=== PATIENT | male | born 1970 | race Caucasian/White ===

== ENCOUNTER 2022-08-03 08:00 | Outpatient (CLI) | payer SELFPAY ==
[2022-08-03 17:36] LABS: BASOPHILS # (AUTO) 0.1 10^3/uL (0.0-0.1); BASOPHILS % (AUTO) 0.8 %; EOSINOPHILS # (AUTO) 1.1 10^3/uL (0.0-0.7); EOSINOPHILS % (AUTO) 7.6 %; HCT - HEMATOCRIT 45.6 % (42.0-52.0); HGB - HEMOGLOBIN 13.4 g/dL (14.0-18.0); LYMPHOCYTES # (AUTO) 4.4 10^3/uL (1.5-3.5); LYMPHOCYTES % (AUTO) 30.1 %; MEAN CORPUSCULAR HEMOGLOBIN 22.3 pg (27.0-31.0); MEAN CORPUSCULAR HGB CONC 29.4 g/dL (32.0-36.0); MEAN PLATELET VOLUME 9.6 fL (7.4-11.4); MONOCYTES # (AUTO) 1.3 10^3/uL (0.0-1.0); MONOCYTES % (AUTO) 9.2 %; NEUTROPHILS # (AUTO) 7.5 10^3/uL (1.5-6.6); PLT - PLATELET COUNT 407 10^3/uL (130-450); RED CELL DISTRIBUTION WIDTH 15.9 % (12.0-15.0); WHITE BLOOD COUNT 14.5 x10^3/uL (4.8-10.8)
[2022-08-03 17:40] LABS: SLIDE REVIEW? Indicated
[2022-08-03 17:50] LABS: POTASSIUM 4.1 mmol/L (3.5-5.0)
[2022-08-03 18:11] LABS: DIFFERENTIAL COMMENT MANUAL=AUTO DIFF; PLATELET ESTIMATE, MANUAL NORMAL (130-450,000) (NORMAL); PLATELET MORPHOLOGY NORMAL APPEARANCE (NORMAL); RBC MORPHOLOGY (MULTIPLE) NORMAL APPEARANCE (NORMAL)
== END 2022-08-03 23:59 | disposition home or self-care (01) ==
LOC: LAB.N 08:00
PROVIDERS: ATTEND Physician Assistant
DX: R05.9 Cough, unspecified (principal)
CPT/HCPCS: 36415; 80048; 85025

== ENCOUNTER 2024-12-24 12:36 | Observation (INO) ==
--- NOTE | 2024-12-24 13:27 | ED Physician Documentation ---
History of Present Illness Stated complaint Stated Complaint: FLU LIKE SYMPTOMS Chief complaint Chief Complaint: General History obtained from History obtained from: Patient History of Present Illness Timing: Prior to arrival Additonal information Additional information: Patient is a 54-year-old male brought in by ambulance for generalized fatigue fevers cough body aches congestion and headache. Symptoms have been going on for 3 days. He notes symptoms started after he picked his daughter up from daycare and she had the flu. He notes he continues to have persistent symptoms. He has taken 200 of ibuprofen at home and drink lots of fluids with no relief. He notes he has been more fatigued and persistent headache that does not seem to go away he describes as a 9 out of 10 headache no history of migraines. No vomiting. No wheezing, cough, or sore throat with his symptoms. Meds/Allgy Allergies Allergies Allergy/AdvReac Type Severity Reaction Status Date / Time No Known Drug Allergies Allergy Verified 12/24/24 12:54 PFSH Active Problems All Active Problems (Updated 12/24/24 @ 15:14 by Teena Betancourt PA-C) Rhinovirus (Acute) Body aches (Acute) Cough (Acute) Right upper lobe pneumonia (Acute) Pneumonia (Acute) Social History Social History Relationship: Do you feel safe in your home environment?: Yes Suffered physical, verbal, emotional, or financial abuse?: No Exam Constitutional normal general appearance HENMT normocephalic, head/scalp atraumatic and hearing grossly normal bilaterally Eyes PERRL, EOMs intact bilaterally and conjunctivae normal Neck/C-Spine visual inspection normal and trachea midline Lymph no lymphadenopathy noted Chest inspection of chest normal Respiratory breath sounds equal bilaterally, normal respiratory effort and clear to auscultation bilaterally Cardiovascular normal heart rate noted, regular rhythm noted, no gallop and no rub Gastrointestinal abdomen normal to inspection No abdominal tenderness no rebound guarding. Extremities normal to inspection Skin skin color normal and no rash Results Vitals Vitals: Vital Signs - 24 hr 12/24/24 12:52 12/24/24 13:15 12/24/24 13:30 Temperature 38.3 C H Temperature Source Oral Pulse Rate 127 H 122 H 121 H Respiratory Rate 18 23 36 H Blood Pressure 145/84 H 166/99 H 185/73 H O2 Saturation 93 91 L 90 L O2 Source Room air Room air Room air If not protocol: Oxygen Flow, liters/minute Pain Intensity 9 9 9 12/24/24 13:31 12/24/24 13:54 12/24/24 14:00 Temperature Temperature Source Pulse Rate 117 H 112 H Respiratory Rate 36 H 22 Blood Pressure 141/76 H 127/75 O2 Saturation 90 L 94 O2 Source Room air Nasal cannula If not protocol: Oxygen Flow, liters/minute 2 Pain Intensity 8 9 7 12/24/24 14:17 12/24/24 14:38 12/24/24 14:42 Temperature 37.8 C 37.2 C Temperature Source Oral Oral Pulse Rate 112 H Respiratory Rate 20 Blood Pressure 117/76 O2 Saturation 93 O2 Source Room air If not protocol: Oxygen Flow, liters/minute Pain Intensity 6 7 12/24/24 15:09 Temperature Temperature Source Pulse Rate 103 H Respiratory Rate 16 Blood Pressure 123/85 O2 Saturation 87 L O2 Source Room air If not protocol: Oxygen Flow, liters/minute Pain Intensity 5 Oxygen O2 Source Room air Labs Labs: Laboratory Tests 12/24/24 12/24/24 12/24/24 13:05 13:06 13:06 WBC 19.2 H RBC 5.18 Hgb 11.5 L Hct 37.8 L MCV 73.0 L MCH 22.2 L MCHC 30.4 L RDW 14.5 Plt Count 309 MPV 9.9 Neut # (Auto) Not Reportable Lymph # (Auto) Not Reportable [place] # (Auto) Not Reportable Eos # (Auto) Not Reportable Baso # (Auto) Not Reportable Absolute Nucleated RBC Not Reportable Total Counted 100 Band Neuts % (Manual) 20 H Abnorm Lymph % (Manual) 0 Metamyelocytes % 2 H Nucleated RBC % Not Reportable Neutrophils # (Manual) 14.4 H Lymphocytes # (Manual) 3.5 Monocytes # (Manual) 0.8 Eosinophils # (Manual) 0.2 Basophils # (Manual) 0.0 Differential Comment MANUAL DIFFERENTIAL Manual Slide Review Indicated WBC Morphology 1+ DOHLE BODIES 1+ TOXIC GRANULATION Platelet Estimate NORMAL (130-450,000) Platelet Morphology 1+ LARGE PLATELETS RBC Morph Micro Appear 1+ HYPOCHROMASIA Sodium 131 L Potassium 3.6 Chloride 97 L Carbon Dioxide 25 Anion Gap 9.0 BUN 22 H Creatinine 1.1 Estimated GFR (MDRD) 70 L Glucose 166 H Lactic Acid 1.2 Calcium 8.8 Total Bilirubin 1.0 AST 32 ALT 28 Alkaline Phosphatase 65 Total Protein 7.4 Albumin 3.5 Globulin 3.9 Albumin/Globulin Ratio 0.9 L Lipase < 10 L Nasal Adenovirus (PCR) NOT DETECTED Nasal B. parapertussis DNA (PCR) NOT DETECTED Nasal Coronavir 229E PCR NOT DETECTED Nasal Coronavir HKU1 PCR NOT DETECTED Nasal Coronavir NL63 PCR NOT DETECTED Nasal Coronavir OC43 PCR NOT DETECTED Nasal Enterovir/Rhinovir PCR DETECTED A Nasal Influenza B PCR NOT DETECTED Nasal Influenza A PCR NOT DETECTED Nasal Parainfluen 1 PCR NOT DETECTED Nasal Parainfluen 2 PCR NOT DETECTED Nasal Parainfluen 3 PCR NOT DETECTED Nasal Parainfluen 4 PCR NOT DETECTED Nasal RSV (PCR) NOT DETECTED Nasal B.pertussis DNA PCR NOT DETECTED Nasal C.pneumoniae (PCR) NOT DETECTED Bradley Human Metapneumo PCR NOT DETECTED Nasal M.pneumoniae (PCR) NOT DETECTED Nasal SARS-CoV-2 (PCR) NOT DETECTED PD Medical Decision Making ED course Complexity details: reviewed old records and reviewed results ED course: Patient 54-year-old male presents with generalized bodyaches cough congestion and fatigue symptoms have been going on for approximately 3 days with persistent headache for his symptoms he has been drinking lots of fluids and took an ibuprofen and Sudafed this morning with no significant relief. Patient did not receive his flu shot this year he has congestion body aches with his symptoms as well. Symptoms started shortly after his daughter became sick with the flu as well. Vitals here in the ED remarkable for tachycardic to 120s on arrival febrile to 38.3 he is awake alert answering questions appropriately. Labs here in the emergency department showSignificant leukocytosis at 19. Patient has no lactic acid but does meet sepsis criteria and blood cultures were obtained. Patient is receiving IV fluids here in the ED he is receiving 2 L for persistent tachycardia but not 3 L for the concern for fluid overload and nonhypotensive for the 30 mL/kg sepsis protocol. Patient was started on ceftriaxone and azithromycin after chest x-ray showed right upper lobe pneumonia. Patient becoming hypoxic here in the ED no increased work of breathing patient saturating at 87% on room air and he was started on 2 L nasal cannula here in the ED. Patient appears to be tolerating this better. Given concerns for hypoxia related to pneumonia patient will be admitted for monitoring and IV antibiotics in patient. I discussed with Mukund nurse practitioner who is agreeable with admission at this time. Patient is safe for the floor. Patient agreeable to staying overnight and being monitored. After admission patient's procalcitonin did show significant elevation at 45. This was updated to hospitalists. Discharge Plan Discharge Patient Disposition: 66 [facility] DC/Xfer Condition: Stable Clinical Impression: Pneumonia, Right upper lobe pneumonia, Cough, Body aches, Rhinovirus Print Language: Maori
[2024-12-24 13:30] LABS: BASOPHILS % (AUTO) 0.6 %; EOSINOPHILS % (AUTO) 0.2 %; HCT - HEMATOCRIT 37.8 % (42.0-52.0); HGB - HEMOGLOBIN 11.5 g/dL (14.0-18.0); LYMPHOCYTES % (AUTO) 17.4 %; MEAN CORPUSCULAR HEMOGLOBIN 22.2 pg (27.0-31.0); MEAN CORPUSCULAR HGB CONC 30.4 g/dL (32.0-36.0); MEAN PLATELET VOLUME 9.9 fL (7.4-11.4); MONOCYTES % (AUTO) 3.5 %; NEUTROPHILS % (AUTO) 77.7 %; PLT - PLATELET COUNT 309 10^3/uL (130-450); RED BLOOD COUNT 5.18 10^6/uL (4.70-6.10); RED CELL DISTRIBUTION WIDTH 14.5 % (12.0-15.0); WHITE BLOOD COUNT 19.2 x10^3/uL (4.8-10.8)
[2024-12-24] MEDS: ACETAMINOPHEN 500 MG TABLET PO STA (13:31)
[2024-12-24] MEDS: SODIUM CHLORIDE 0.9% 1,000 ML IV STA ×2 (13:31→14:50)
[2024-12-24 13:34] LABS: ALBUMIN 3.5 g/dL (3.2-5.5); ALBUMIN/GLOBULIN RATIO 0.9 (1.0-2.2); ALKALINE PHOSPHATASE 65 IU/L (42-121); ALT ALANINE AMINOTRANSFERASE 28 IU/L (10-60); AST ASPARTATE AMINOTRANSFERASE 32 IU/L (10-42); BUN - BLOOD UREA NITROGEN 22 mg/dL (6-20); CALCIUM 8.8 mg/dL (8.5-10.3); CARBON DIOXIDE - CO2 25 mmol/L (21-32); CHLORIDE 97 mmol/L (101-111); CREATININE 1.1 mg/dL (0.6-1.3); GFR - MDRD 70 (>89); GLUCOSE 166 mg/dL (74-104); POTASSIUM 3.6 mmol/L (3.5-4.5); SODIUM 131 mmol/L (135-145); TOTAL PROTEIN 7.4 g/dL (6.4-8.9)
[2024-12-24 13:35] LABS: ABNORMAL LYMPHS % (MANUAL) 0 %; LIPASE < 10 U/L (11-82); SLIDE REVIEW? Indicated
[2024-12-24 13:56] LABS: BAND NEUTROPHILS % (MANUAL) 20 %; EOSINOPHILS # (MANUAL) 0.2 10^3/uL (0-0.7); LYMPHOCYTES # (MANUAL) 3.5 10^3/uL (1.5-3.5); LYMPHOCYTES % (MANUAL) 18 %; METAMYELOCYTES % (MANUAL) 2 %; MONOCYTES # (MANUAL) 0.8 10^3/uL (0.0-1.0); NEUTROPHILS # (MANUAL) 14.4 10^3/uL (1.5-6.6)
[2024-12-24 14:00] LABS: DIFFERENTIAL COMMENT MANUAL DIFFERENTIAL; PLATELET ESTIMATE, MANUAL NORMAL (130-450,000) (NORMAL); PLATELET MORPHOLOGY 1+ LARGE PLATELETS (NORMAL); RBC MORPHOLOGY (MULTIPLE) 1+ HYPOCHROMASIA (NORMAL)
[2024-12-24 14:11] LABS: CORONAVIRUS 229E-RESP PCR NOT DETECTED; CORONAVIRUS HKU1-RESP PCR NOT DETECTED; CORONAVIRUS NL63-RESP PCR NOT DETECTED; CORONAVIRUS OC43-RESP PCR NOT DETECTED; SARS-CoV-2 -RESP PCR PANEL NOT DETECTED
[2024-12-24 14:12] LABS: B. PARAPERTUSSIS- RESP PCR PAN NOT DETECTED; B. PERTUSSIS- RESP PCR PANEL NOT DETECTED; C. PNEUMONIAE- RESP PCR PANEL NOT DETECTED; HUMAN METAPNEUMOVIRUS NOT DETECTED; INFLUENZA A- RESP PCR PANEL NOT DETECTED; INFLUENZA B - RESP PCR PANEL NOT DETECTED; M. PNEUMONIAE- RESP PCR PANEL NOT DETECTED; PARAINFLUENZA VIRUS 1 NOT DETECTED; PARAINFLUENZA VIRUS 2 NOT DETECTED; PARAINFLUENZA VIRUS 4 NOT DETECTED; RHINOVIRUS/ENTEROVIRUS DETECTED; RSV- RESP PCR PANEL NOT DETECTED
[2024-12-24] MEDS: cefTRIAXone 2 GM VIAL IVP STA (14:49)
--- NOTE | 2024-12-24 14:59 | XRAY Report ---
PROCEDURE: XR Chest 2V INDICATIONS: sob, hypoxia TECHNIQUE: 2 views of the chest were acquired. COMPARISON: None. FINDINGS: Surgical changes and devices: None. Lungs and pleura: Right upper mid lobe opacities. Mediastinum: Mediastinal contours appear normal. Heart size is normal. Bones and chest wall: No suspicious bony lesions. Overlying soft tissues appear unremarkable. IMPRESSION: Right lobe opacity is most consistent with pneumonia. Interval follow-up is recommended after appropr iate therapy to document resolution. Reviewed by: Betina Bustos MD on 12/24/2024 2:58 PM PDT Approved by: Betina Bustos MD on 12/24/2024 2:58 PM PDT Station ID: [id number]
[2024-12-24] MEDS: AZITHROMYCIN INJ 500 MG in SODIUM CHLORIDE 0.9% 250 ML IV STA (15:03)
--- NOTE | 2024-12-24 15:51 | HISTORY & PHYSICAL EXAMINATION ---
Chief Complaint Chief Complaint Chief Complaint: Shortness of breath History of Present Illness Admitted From Admitted From:: Home History Obtained From Records Reviewed: EMR History obtained from: Patient Exam Limitations: None History of Present Illness HPI Comment/Other: Patient is a 54-year-old male with history of tobacco use who presents with worsening shortness of breath, fevers, chills, fatigue since Wednesday. He went to his child school to pick her up on Wednesday, and since then, has been feeling progressively worse. It started with fatigue. He then had a cough, which is productive of clear to green sputum. He then had progressive shortness of breath, followed by headache, fevers, chills. He has never been hospitalized before, nor does he have a history of pneumonia. He does smoke a pack and a half a day. He has never been diagnosed with COPD or asthma. He does not use inhalers at baseline. In the emergency room, patient was febrile to 101.0, tachycardic to 122, tachypneic to 36, and saturating 87% on room air. His blood pressure was initially elevated at 185/73. Lab work shows a leukocytosis of 19.2, hemoglobin of 11.5, sodium of 131, procalcitonin was elevated at 44.96, rhinovirus was detected. Chest x-ray does show a right lower lobe consolidation, consistent with pneumonia. Past medical history: Tobacco use Medications: None Allergies: No known drug allergies Surgical history: None Family history: Nonpertinent Social history: Drinks alcohol occasionally. Denies any recreational drug use. Smokes a pack and a half a day, has for many years. Meds/Allgy Allergies Allergies Allergy/AdvReac Type Severity Reaction Status Date / Time No Known Drug Allergies Allergy Verified 12/24/24 12:54 [facility] Active Problems All Active Problems (Updated 12/24/24 @ 15:51 by Celestino Dunn MD) Sepsis (Acute) Tobacco use (Acute) Acute hypoxic respiratory failure (Acute) Rhinovirus (Acute) Body aches (Acute) Cough (Acute) Right upper lobe pneumonia (Acute) Pneumonia (Acute) Social History Social History Relationship: Do you feel safe in your home environment?: Yes Suffered physical, verbal, emotional, or financial abuse?: No POLST Patient has POLST: No POLST Status: Full Code Review of Systems Constitutional Reports: Fatigue, Fever, Chills, Malaise and Weakness; Denies: Poor appetite, Weight gain or Weight loss Eyes Denies: Pain, Irritation, Amaurosis, Blurry vision, Floaters or Field loss Ears, nose, mouth, and throat Denies: Ear pain, Ear discharge, Hearing loss, Hearing aids, Nasal discharge, Nasal congestion, Post nasal drip, Neck pain or Throat swelling Cardiovascular Reports: shortness of breath with exertion and Decreased exercise tolerance; Denies: Irregular heart rate, chest pain, palpitations, edema, swelling of feet/ankles or Syncope Respiratory Reports: Shortness of breath, Cough, Sputum production and Change in phlegm color; Denies: Wheezing Gastrointestinal Denies: Abdominal pain, Abdominal distention, Nausea, Vomiting or Poor appetite Genitourinary Denies: Painful urination, Flank pain, Incontinence, Urinary frequency, Urinary urgency or Nocturia Musculoskeletal Denies: Back pain, Neck pain, Extremity pain, Extremity swelling or Gout Integumentary/Breast Denies: Rash, Itching, Dryness, Redness, Skin pain or Skin tenderness Neurological Reports: Headache and General weakness Psychiatric Denies: Depression, Anxiety, Mood swings, Panic attacks or Difficulty concentrating Endocrine Reports: Fatigue; Denies: Excessive urination, Excessive thirst or Polyphagia Hematologic/Lymphatic Denies: Anemia, Easy bruising or Petechiae Allergic/Immunologic Denies: Hives, Throat swelling, Tongue swelling or Wheezing Prior Level of Functionality: Fully independent prior to admission. Exam Constitutional normal general appearance, no apparent distress, average body habitus, no limitations and alert HENMT normocephalic and head/scalp atraumatic Eyes PERRL, EOMs intact bilaterally, conjunctivae normal and no scleral icterus Neck/C-Spine visual inspection normal and trachea midline Chest inspection of chest normal Respiratory breath sounds equal bilaterally and rales noted (Rales noted in right lower lobe, no wheezing noted) Cardiovascular normal heart rate noted, regular rhythm noted, no gallop and no murmur Gastrointestinal abdomen normal to inspection, abdomen soft to palpation, nontender to palpation and nontender to percussion Genitourinary no CVA tenderness Extremities normal to inspection, normal to palpation and no tenderness Neurology no movement abnormality noted Psychiatry mental status grossly normal, oriented x3, thought process normal, cooperative and affect normal Skin skin color normal, no rash and no lesions Conclusion/Plan Problem List (1) Acute hypoxic respiratory failure: Plan: Patient presented hypoxic to 87% on room air, tachycardic, tachypneic, febrile, with leukocytosis of 19. Procalcitonin 45, chest x-ray with right lower lobe consolidation, respiratory viral panel positive for rhinovirus. Likely bacterial pneumonia superimposed on viral pneumonia. Continue gentle IV fluid rehydration. Continue Rocephin and azithromycin. Blood cultures, sputum cultures ordered, pending. Continue to wean oxygen as tolerated. (2) Sepsis: Plan: See above. Qualifiers: Sepsis type: sepsis due to unspecified organism Sepsis acute organ dysfunction status: with acute organ dysfunction Severe sepsis acute organ dysfunction type: acute respiratory failure Acute respiratory failure type: w ith hypoxia Severe sepsis shock status: without septic shock Qualified Code(s): A41.9 - Sepsis, unspecified organism; R65.20 - Severe sepsis without septic shock; J96.01 - Acute respiratory failure with hypoxia (3) Rhinovirus: Plan: See above. Continue with supportive care with Robitussin DM as needed [id number], IV fluids. (4) Right upper lobe pneumonia: Plan: See above. Qualifiers: Pneumonia type: due to unspecified organism Qualified Code(s): J18.9 - Pneumonia, unspecified organism (5) Tobacco use: Plan: Nicotine patch ordered. Lab Results Lab results reviewed: Yes 12/24/24 13:06 12/24/24 13:06 Diagnostic Imaging Results Diagnostic Imaging Results: positive Final report reviewed
[2024-12-24] MEDS ORDERED: ONDANSETRON 4 MG/2 ML VIAL IVP PRN (16:25)
[2024-12-24] MEDS ORDERED: ONDANSETRON ODT 4 MG TABLET TL PRN (16:25)
[2024-12-24] MEDS ORDERED: SODIUM CHLORIDE FLUSH 0.9% 10 ML SYRINGE IVP PRN (16:25)
[2024-12-24] MEDS ORDERED: guaiFENesin/DEXTROMETHORPHAN 10 ML UDC PO PRN (16:25)
[2024-12-24] MEDS ORDERED: IBUPROFEN 400 MG TABLET PO PRN (16:25)
[2024-12-24] MEDS: NICOTINE 14 MG PATCH TOP SCH (19:12)
[2024-12-24] MEDS: SODIUM CHLORIDE FLUSH 0.9% 10 ML SYRINGE IVP SCH (19:13)
[2024-12-24] MEDS: ACETAMINOPHEN 325 MG TABLET PO PRN (19:14)
[2024-12-25 08:19] LABS: HCT - HEMATOCRIT 38.1 % (42.0-52.0); HGB - HEMOGLOBIN 11.3 g/dL (14.0-18.0); MEAN CORPUSCULAR HEMOGLOBIN 22.5 pg (27.0-31.0); MEAN CORPUSCULAR HGB CONC 29.7 g/dL (32.0-36.0); MEAN CORPUSCULAR VOLUME 75.7 fL (80.0-94.0); MEAN PLATELET VOLUME 10.4 fL (7.4-11.4); RED BLOOD COUNT 5.03 10^6/uL (4.70-6.10); RED CELL DISTRIBUTION WIDTH 14.9 % (12.0-15.0); WHITE BLOOD COUNT 17.3 x10^3/uL (4.8-10.8)
[2024-12-25 08:30] LABS: CALCIUM 8.1 mg/dL (8.5-10.3); CREATININE 0.9 mg/dL (0.6-1.3); POTASSIUM 3.7 mmol/L (3.5-4.5)
[2024-12-25] MEDS: ENOXAPARIN 40 MG/0.4 ML SYRINGE SUBQ SCH (09:10)
[2024-12-25] MEDS: cefTRIAXone 1 GM VIAL IVP SCH (09:10)
[2024-12-25] MEDS: AZITHROMYCIN 250 MG TABLET PO SCH (09:10)
--- NOTE | 2024-12-25 10:21 | PROVIDER PROGRESS NOTE ---
Subjective Subjective Subjective: Patient states that he feels better. He has no fevers or chills. His shortness of breath has improved. He still is having a cough productive of some clear to yellow sputum. He is eager to go home when able. Current Medications Current Medications Current Medications: Current Medications Generic Name Dose Route Start Last Admin Trade Name Freq PRN Reason Stop Dose Admin Acetaminophen 650 mg 12/24/24 16:25 12/25/24 05:37 Acetaminophen 325 Mg Tablet PO 650 mg Q4HR PRN Administration Pain 1 to 4, or Fever Azithromycin 500 mg 12/25/24 09:00 12/25/24 09:10 Azithromycin 250 Mg Tablet PO 500 mg DAILY CANDI Administration Ceftriaxone Sodium 1 gm 12/25/24 09:00 12/25/24 09:10 Ceftriaxone 1 Gm Vial IVP 1 gm DAILY CANDI Administration Enoxaparin Sodium 40 mg 12/25/24 09:00 12/25/24 09:10 Enoxaparin 40 Mg/0.4 Ml Syringe SUBQ 40 mg DAILY CANDI Administration Guaifenesin 10 ml 12/24/24 16:25 Guaifenesin/Dextromethorphan 10 Ml Udc PO Q6HR PRN Cough Ibuprofen 400 mg 12/24/24 16:25 Ibuprofen 400 Mg Tablet PO Q4HR PRN Pain 1 to 4 Nicotine 1 patch 12/24/24 19:00 12/25/24 09:11 Nicotine 14 Mg Patch TOP Not Given DAILY CANDI Ondansetron HCl 4 mg 12/24/24 16:25 Ondansetron Odt 4 Mg Tablet TL Q6HR PRN Nausea / Vomiting Ondansetron HCl 4 mg 12/24/24 16:25 Ondansetron 4 Mg/2 Ml Vial IVP Q6HR PRN Nausea / Vomiting Sodium Chloride 10 ml 12/24/24 16:25 Sodium Chloride Flush 0.9% 10 Ml Syringe IVP PRN PRN NEEDED PER PROVIDER ORDERS Sodium Chloride 10 ml 12/24/24 17:00 12/25/24 09:11 Sodium Chloride Flush 0.9% 10 Ml Syringe IVP 10 ml 0100,0900,1700 CANDI Administration Objective Vital Signs/Intake & Output Reviewed Vital Signs: Yes Vital Signs: Vital Signs x48h Temp Pulse Resp BP Pulse Ox 12/25/24 09:41 97.3 F L 86 16 136/92 H 93 12/25/24 06:00 98.4 F 92 20 119/74 92 Intake & Output: Intake & Output 12/22/24 12/23/24 12/24/24 12/25/24 23:59 23:59 23:59 23:59 Intake Total 3570 / 3570 360 / 360 Balance 3570 / 3570 360 / 360 Weight (kg) 106.5 kg Objective General Appearance: positive No acute distress and Alert; negative Anxious Eyes Bilateral: positive Normal inspection, PERRL and EOMI ENT: positive ENT inspection nml, Pharynx nml and No signs of dehydration Neck: positive Nml inspection, Thyroid nml and No JVD Respiratory: positive Chest non-tender and Rales (Diffuse Rales in all lung mc) Cardiovascular: positive Regular rate & rhythm, No murmur and No gallop Abdomen: positive Non-tender, No organomegaly and No distention; negative Tenderness, Guarding or Rebound Back: positive Nml inspection; negative CVA tenderness (R) or CVA tenderness (L) Skin: positive Color nml, No rash, Warm and Dry Extremities: positive Non-tender, Full ROM and No pedal edema Neurologic/Psychiatric: positive Oriented x3 and Mood/affect nml Lab Results 12/25/24 08:03 12/25/24 08:03 Other Labs: Lab Results x24hrs 12/25/24 12/24/24 12/24/24 Range/Units 08:03 14:42 13:06 WBC 17.3 H (4.8-10.8) x10^3/uL RBC 5.03 (4.70-6.10) 10^6/uL Hgb 11.3 L (14.0-18.0) g/dL Hct 38.1 L (42.0-52.0) % MCV 75.7 L (80.0-94.0) fL MCH 22.5 L (27.0-31.0) pg MCHC 29.7 L (32.0-36.0) g/dL RDW 14.9 (12.0-15.0) % Plt Count 271 (130-450) 10^3/uL MPV 10.4 (7.4-11.4) fL Neut # (Auto) Lymph # (Auto) [place] # (Auto) Eos # (Auto) Baso # (Auto) Absolute Nucleated RBC Total Counted Band Neuts % (Manual) (0 - 10) % Abnorm Lymph % (Manual) % Metamyelocytes % ( - 0) % Nucleated RBC % Neutrophils # (Manual) (1.5-6.6) 10^3/uL Lymphocytes # (Manual) (1.5-3.5) 10^3/uL Monocytes # (Manual) (0.0-1.0) 10^3/uL Eosinophils # (Manual) (0-0.7) 10^3/uL Basophils # (Manual) (0-0.1) 10^3/uL Differential Comment Manual Slide Review WBC Morphology 1+ TOXIC GRANULATION (NORMAL) Platelet Estimate NORMAL (130-450,000) (NORMAL) Platelet Morphology 1+ LARGE PLATELETS (NORMAL) RBC Morph Micro Appear 1+ HYPOCHROMASIA (NORMAL) Sodium 136 131 L (135-145) mmol/L Potassium 3.7 3.6 (3.5-4.5) mmol/L Chloride 102 97 L (101-111) mmol/L Carbon Dioxide 28 25 (21-32) mmol/L Anion Gap 6.0 9.0 (6-13) BUN 15 22 H (6-20) mg/dL Creatinine 0.9 1.1 (0.6-1.3) mg/dL Estimated GFR (MDRD) 88 L 70 L (>89) Glucose 119 H 166 H (74-104) mg/dL Lactic Acid 1.2 (0.5-2.2) mmol/L Calcium 8.1 L 8.8 (8.5-10.3) mg/dL Total Bilirubin 1.0 (0.2-1.0) mg/dL AST 32 (10-42) IU/L ALT 28 (10-60) IU/L Alkaline Phosphatase 65 (42-121) IU/L Total Protein 7.4 (6.4-8.9) g/dL Albumin 3.5 (3.2-5.5) g/dL Globulin 3.9 (2.1-4.2) g/dL Albumin/Globulin Ratio 0.9 L (1.0-2.2) Lipase < 10 L (11-82) U/L Procalcitonin Immunoas 44.96 H* (<0.5) ng/mL Nasal Adenovirus (PCR) Nasal B. parapertussis DNA (PCR) Nasal Coronavir 229E PCR Nasal Coronavir HKU1 PCR Nasal Coronavir NL63 PCR Nasal Coronavir OC43 PCR Nasal Enterovir/Rhinovir PCR Nasal Influenza B PCR Nasal Influenza A PCR Nasal Parainfluen 1 PCR Nasal Parainfluen 2 PCR Nasal Parainfluen 3 PCR Nasal Parainfluen 4 PCR Nasal RSV (PCR) Nasal B.pertussis DNA PCR Nasal C.pneumoniae (PCR) [place] Human Metapneumo PCR Nasal M.pneumoniae (PCR) Nasal SARS-CoV-2 (PCR) 12/24/24 12/24/24 Range/Units 13:06 13:05 WBC 19.2 H (4.8-10.8) x10^3/uL RBC 5.18 (4.70-6.10) 10^6/uL Hgb 11.5 L (14.0-18.0) g/dL Hct 37.8 L (42.0-52.0) % MCV 73.0 L (80.0-94.0) fL MCH 22.2 L (27.0-31.0) pg MCHC 30.4 L (32.0-36.0) g/dL RDW 14.5 (12.0-15.0) % Plt Count 309 (130-450) 10^3/uL MPV 9.9 (7.4-11.4) fL Neut # (Auto) Not Reportable Lymph # (Auto) Not Reportable [place] # (Auto) Not Reportable Eos # (Auto) Not Reportable Baso # (Auto) Not Reportable Absolute Nucleated RBC Not Reportable Total Counted 100 Band Neuts % (Manual) 20 H (0 - 10) % Abnorm Lymph % (Manual) 0 % Metamyelocytes % 2 H ( - 0) % Nucleated RBC % Not Reportable Neutrophils # (Manual) 14.4 H (1.5-6.6) 10^3/uL Lymphocytes # (Manual) 3.5 (1.5-3.5) 10^3/uL Monocytes # (Manual) 0.8 (0.0-1.0) 10^3/uL Eosinophils # (Manual) 0.2 (0-0.7) 10^3/uL Basophils # (Manual) 0.0 (0-0.1) 10^3/uL Differential Comment MANUAL DIFFERENTIAL Manual Slide Review Indicated WBC Morphology 1+ DOHLE BODIES (NORMAL) Platelet Estimate (NORMAL) Platelet Morphology (NORMAL) RBC Morph Micro Appear (NORMAL) Sodium (135-145) mmol/L Potassium (3.5-4.5) mmol/L Chloride (101-111) mmol/L Carbon Dioxide (21-32) mmol/L Anion Gap (6-13) BUN (6-20) mg/dL Creatinine (0.6-1.3) mg/dL Estimated GFR (MDRD) (>89) Glucose (74-104) mg/dL Lactic Acid (0.5-2.2) mmol/L Calcium (8.5-10.3) mg/dL Total Bilirubin (0.2-1.0) mg/dL AST (10-42) IU/L ALT (10-60) IU/L Alkaline Phosphatase (42-121) IU/L Total Protein (6.4-8.9) g/dL Albumin (3.2-5.5) g/dL Globulin (2.1-4.2) g/dL Albumin/Globulin Ratio (1.0-2.2) Lipase (11-82) U/L Procalcitonin Immunoas (<0.5) ng/mL Nasal Adenovirus (PCR) NOT DETECTED Nasal B. parapertussis DNA (PCR) NOT DETECTED Nasal Coronavir 229E PCR NOT DETECTED Nasal Coronavir HKU1 PCR NOT DETECTED Nasal Coronavir NL63 PCR NOT DETECTED Nasal Coronavir OC43 PCR NOT DETECTED Nasal Enterovir/Rhinovir PCR DETECTED A Nasal Influenza B PCR NOT DETECTED Nasal Influenza A PCR NOT DETECTED Nasal Parainfluen 1 PCR NOT DETECTED Nasal Parainfluen 2 PCR NOT DETECTED Nasal Parainfluen 3 PCR NOT DETECTED Nasal Parainfluen 4 PCR NOT DETECTED Nasal RSV (PCR) NOT DETECTED Nasal B.pertussis DNA PCR NOT DETECTED Nasal C.pneumoniae (PCR) NOT DETECTED [place] Human Metapneumo PCR NOT DETECTED Nasal M.pneumoniae (PCR) NOT DETECTED Nasal SARS-CoV-2 (PCR) NOT DETECTED Diagnostic Imaging Diagnostic Imaging Results: positive Final report reviewed Assessment/Plan Problem List (1) Bacteremia due to Streptococcus pneumoniae: Impression: Blood cultures 2 out of 2 positive for gram-positive cocci, Streptococcus pneumonia. Likely lung source, pneumonia. Continue Rocephin, azithromycin. Today is day 2 of IV antibiotics and the patient. White count is downtrending, but is still high. (2) Acute hypoxic respiratory failure: Impression: Patient presented hypoxic to 87% on room air, tachycardic, tachypneic, febrile, with leukocytosis of 19. Procalcitonin 45, chest x-ray with right lower lobe consolidation, respiratory viral panel positive for rhinovirus. Likely bacterial pneumonia superimposed on viral pneumonia. Continue gentle IV fluid rehydration. Continue Rocephin and azithromycin. Continue to wean oxygen as tolerated. Patient now on room air. Complete oxygen desaturation study prior to discharge. (3) Sepsis: Impression: See above. Qualifiers: Acute respiratory failure type: with hypoxia Sepsis acute organ dysfunction status: with acute organ dysfunction Sepsis type: sepsis due to unspecified organism Severe sepsis acute organ dysfunction type: acute respiratory failure Severe sepsis shock status: without septic shock Qualified Code(s): A41.9 - Sepsis, unspecified organism; R65.20 - Severe sepsis without septic shock; J96.01 - Acute respiratory failure with hypoxia (4) Rhinovirus: Impression: See above. Continue with supportive care with Robitussin DM as needed [id number], IV fluids. (5) Right upper lobe pneumonia: Impression: See above. Qualifiers: Pneumonia type: due to unspecified organism Qualified Code(s): J18.9 - Pneumonia, unspecified organism (6) Tobacco use: Impression: Nicotine patch ordered.
--- NOTE | 2024-12-25 14:06 | PHARMACY PROGRESS NOTE ---
Best Possible Medication History Admit Date and Time: 12/24/24 1529 Processed by: Pharmacy Medications reviewed in ED?: No Medication History completed: Yes Patient Interview: Completed Secondary Source(s): Insurance records [facility] Statement: Pt confirms no home medications. As the person ultimately responsible for medication therapy, providers are able to order a medication from an existing home medication list in [facility] via the "Reconcile Routine" prior to Confirmation of that medication by legal support specialist. Such practice is discouraged except when the physician, in their clinical judgm ent, deems that a medical need exists for a medication without regard to previous use.
--- NOTE | 2024-12-25 14:57 | Discharge Summary ---
"Discharge Summary Admit Date: 12/24/24 Discharge Date: 12/25/24 Discharging Provider: Dr. Celestino Dunn Primary Care Provider: None Code Status: Attempt Resuscitation Discharge Facility Name: Home DIAGNOSES Admission Diagnoses: Acute hypoxic respiratory failure Sepsis Rhinovirus Right upper lobe pneumonia Tobacco use Discharge Diagnoses with Status of Each Condition: Bacteremia due to Streptococcus pneumoniablood cultures 2 out of 2 positive for gram-positive cocci, Streptococcus pneumonia. Likely lung source. Received 2 days of Rocephin and azithromycin. Will discharge him on 1 g of amoxicillin every 8 hours. Advised to follow-up with primary care provider in 1 to 2 weeks to assess resolution of pneumonia and bacteremia. Advised return if his symptoms worsen. Acute hypoxic respiratory failureresolved. Ambulatory pulse oximetry study demonstrated no need for home oxygen. Sepsisresolved. No longer tachycardic or febrile. Leukocytosis downtrending as well. Rhinoviruscontinue supportive care with Robitussin, IV hydration, adequate nutrition. Right upper lobe pneumoniasee above. Tobacco useadvised to abstain from tobacco use. HPI History of Present Illness: Patient is a 54-year-old male with history of tobacco use who presents with worsening shortness of breath, fevers, chills, fatigue since Wednesday. He went to his child school to pick her up on Wednesday, and since then, has been feeling progressively worse. It started with fatigue. He then had a cough, which is productive of clear to green sputum. He then had progressive shortness of breath, followed by headache, fevers, chills. He has never been hospitalized before, nor does he have a history of pneumonia. He does smoke a pack and a half a day. He has never been diagnosed with COPD or asthma. He does not use inhalers at baseline. In the emergency room, patient was febrile to 101.0, tachycardic to 122, tachypneic to 36, and saturating 87% on room air. His blood pressure was initially elevated at 185/73. Lab work shows a leukocytosis of 19.2, hemoglobin of 11.5, sodium of 131, procalcitonin was elevated at 44.96, rhinovirus was detected. Chest x-ray does show a right lower lobe consolidation, consistent with pneumonia. Past medical history: Tobacco use Medications: None Allergies: No known drug allergies Surgical history: None Family history: Nonpertinent Social history: Drinks alcohol occasionally. Denies any recreational drug use. Smokes a pack and a half a day, has for many years. CONSULTS | PROCEDURES Consultations: Respiratory therapy Procedures: Chest x-ray HOSPITAL COURSE Hospital Course: Patient is a 54-year-old male with a history of tobacco use who presented with shortness of breath, fatigue, fevers, chills. He was found to be septic. Was rhinovirus positive. Chest x-ray showed pneumonia, procalcitonin was high. Was being treated for community-acquired pneumonia with Rocephin and azithromycin. Blood cultures are positive for Streptococcus pneumonia. This morning, he was feeling much better. Leukocytosis is downtrending. He has been afebrile. He was on room air. Ambulatory pulse oximetry testing was done, and he did not require oxygen on discharge. He will be discharged home on 1 g of amoxicillin every 8 hours for 5 more days to complete his antibiotic course. He was advised to return if he worsened, and make an appointment with his PCP for close follow up. ALLERGIES Allergies Allergy/AdvReac Type Severity Reaction Status Date / Time No Known Drug Allergies Allergy Verified 12/24/24 12:54 MEDICATIONS Ambulatory Orders Medication Instructions Recorded Confirmed amoxicillin 500 mg capsule 1,000 mg (2 x 500 mg) PO Q8H 5 12/25/24 days #30 caps PHYSICAL EXAM AT DISCHARGE General Appearance: positive No acute distress and Alert; negative Anxious Eyes Bilateral: positive Normal inspection, PERRL and EOMI ENT: positive ENT inspection nml, Pharynx nml and No signs of dehydration Neck: positive Nml inspection, Thyroid nml and No JVD Respiratory: positive Chest non-tender, No respiratory distress, Breath sounds nml and Rales (Diffuse rales, improving); negative Wheezes or Rhonchi Cardiovascular: positive Regular rate & rhythm, No murmur and No gallop Peripheral Pulses: positive 2+ Abdomen: positive Non-tender and No distention; negative Tenderness, Guarding, Hepatomegaly or Splenomegaly Back: positive Nml inspection Skin: positive Color nml, No rash, Warm and Dry Extremities: positive Non-tender, Full ROM, Nml appearance and No pedal edema Neurologic/Psychiatric: positive Oriented x3, Motor nml and Mood/affect nml LABS 12/25/24 08:03 12/25/24 08:03 DIAGNOSTIC IMAGING Diagnostic Imaging Results: Final report reviewed SEPSIS Current Stage of Sepsis: Resolved Possible source of Sepsis: Pulmonary Sepsis Criteria: Recorded Temperature greater than 38.3C or Less than 36C, Respiratory: Increasing oxygen requirements and WBC count greater than 12,000 or less than 4000 FOLLOW UP Follow Up: Follow up with a primary care provider. TIME SPENT Time Spent in Discharge (Minutes): 35 Discharge Plan Discharge Patient Disposition: Home, Self Care Condition: Stable Prescriptions: New amoxicillin 500 mg capsule 1,000 mg PO Q8H 5 Days Qty: 30 0RF Diet: Regular Health Concerns: You came in because you were tired, had fevers, chills, cough. You were found to have rhinovirus, which is one of the viruses that cause the common cold. You are also found to have a bacterial pneumonia on top of that. Your blood grew Streptococcus pneumoniae, a very common pathogen that causes pneumonia, as well as infection to the blood. You received 2 days of IV antibiotics while you have been here. I want you to continue 5 more days of oral antibiotics, amoxicillin 1 g 3 times a day. Even if you are feeling better, please complete your antibiotic course. If you start to feel worse, have any fevers, chills, shortness of breath. Please return to the emergency room. Please follow-up with the primary care provider on discharge. We are glad you are feeling better, thank you feeling us take care of you. Print Language: Panamanian Patient Instructions: Pneumonia Dc Stand Alone Forms: PCP List"
[2024-12-25 17:01] VITALS: BP 131/84; TEMP 98.1; O2SAT 96
== END 2024-12-25 17:30 | disposition home or self-care (01) ==
LOC: EDBD → ED 12:36 → MS3 12:36
PROVIDERS: ADMIT Internal Medicine; ATTEND Internal Medicine
DX: B97.4 Respiratory syncytial virus as the cause of diseases classified elsewhere; J96.01 Acute respiratory failure with hypoxia; R65.20 Severe sepsis without septic shock; A40.3 Sepsis due to Streptococcus pneumoniae; J13 Pneumonia due to Streptococcus pneumoniae; F17.210 Nicotine dependence, cigarettes, uncomplicated